=== PATIENT | female | born 1975 | race Caucasian/White ===

== ENCOUNTER → 2017-02-15 | Outpatient (CLI) | payer OTHER, BC ==
[~2017-02-15] MED LIST: ALBUAER19 INH; CYAN100020 PO; FRRS300 PO; LYR50 PO; MELO7.5T5 PO; RXC5 PO; TRAM-10 PO
--- NOTE | 2017-02-15 10:25 | DIAGNOSTIC IMAGING REPORT ---
RIGHT SHOULDER MRI HISTORY: Right shoulder pain. Right SHOULDER/SCAPULA STRAIN, R/O ROTATOR CUFF INJ Right TECHNIQUE: Multiplanar multisequence MRI of the right shoulder was performed without contrast. COMPARISON STUDY: None. FINDINGS: AC joint: Intact Rotator cuff: The infraspinatus, teres minor, subscapularis tendons are intact. There is mild increased signal seen within the supraspinatus tendon consistent with a mild tendinopathy. No evidence for full-thickness rotator cuff tear. No fluid within the subacromial/subdeltoid bursa. Labrum: Small focal area of fluid at the base of the superior labrum best seen on coronal image 9. This may represent a normal sulcus. Otherwise, no definite evidence for a labral tear. Biceps tendon: Intact Bones: Intact Cartilage: Intact Miscellaneous: No significant joint effusion. IMPRESSION: 1. Mild increased signal within the supraspinatus tendon consistent with a mild tendinopathy. No evidence for full-thickness rotator cuff tear. 2. Small focal area of fluid signal the base of the superior labrum. This favors a normal sulcus. Otherwise, no definite evidence for labral tear. Electronically signed by: J Luis Lara M.D. 02/15/2017 10:24 AM Dictated Date/Time: 02/15/2017 10:18 AM
== END | disposition home or self-care (01) ==
LOC: C.MRI 07:40
PROVIDERS: ATTEND Preventive Medicine Occupational Medicine
DX: S46.911A Strain of unspecified muscle, fascia and tendon at shoulder and upper arm level, right arm, initial encounter (principal); X58.XXXA Exposure to other specified factors, initial encounter

== ENCOUNTER → 2017-02-19 | Outpatient (CLI) | payer BC, OTHER ==
--- NOTE | 2017-02-19 09:11 | DIAGNOSTIC IMAGING REPORT ---
RIGHT SHOULDER MIN 2 VIEWS CLINICAL HISTORY: Right shoulder pain following injury. COMPARISON: MRI of the right shoulder February 15, 2017. FINDINGS: Alignment of the right shoulder is anatomic. There is no fracture. No osseous lesion is identified. There is mild AC joint arthrosis. IMPRESSION: 1. No acute fracture or dislocation of the right shoulder. 2. Mild arthritis of the right acromioclavicular joint. Electronically signed by: Jerod Tsai M.D. 02/19/2017 9:09 AM Dictated Date/Time: 02/19/2017 9:07 AM
--- NOTE | 2017-02-19 09:11 | DIAGNOSTIC IMAGING REPORT ---
CERVICAL SPINE 6 VIEWS HISTORY: Pain. Radiculopathy. NECK PAIN COMPARISON: None. FINDINGS: The cervical spine is visualized from C1 through the superior endplate of T1. There is no fracture. No subluxation. Moderate degenerative disc change from C4 through C6. Prevertebral soft tissues and the atlantodens interval are intact. IMPRESSION: 1. Mild reversal of the normal cervical curvature 2. Moderate degenerative intervertebral disc change from C4 through C6. 3. Otherwise negative study Electronically signed by: Bairon Abernathy M.D. 02/19/2017 9:09 AM Dictated Date/Time: 02/19/2017 9:08 AM
== END | disposition home or self-care (01) ==
LOC: C.RDSM 12:31
PROVIDERS: ATTEND Family Medicine
DX: M79.601 Pain in right arm (principal); M50.321 Other cervical disc degeneration at C4-C5 level; M50.322 Other cervical disc degeneration at C5-C6 level

== ENCOUNTER → 2017-03-08 | Outpatient (CLI) | payer OTHER ==
[~2017-03-08] MED LIST changes: +PREG1CAP28 PO
--- NOTE | 2017-03-08 10:59 | DIAGNOSTIC IMAGING REPORT ---
MRI CERVICAL WITHOUT CONTRAST CLINICAL HISTORY: CERVICAL RADICULOPATHY TECHNIQUE: Sagittal and axial T1, T2 and STIR images were obtained. COMPARISON STUDY: Conventional radiographic study dated 02/19/2017 There is a focal fatty rest/hemangioma to C6 level. There are no areas of marrow replacement suspicious for metastatic disease. No intrinsic cervical cord lesions are visualized. C2-3: There is no evidence of disc bulge or focal herniation. There is no spinal or foraminal stenosis. C3-4: There is no evidence of disc bulge or focal herniation. There is no spinal or foraminal stenosis. C4-5: There is a mild circumferential disc bulge. There is no significant spinal or foraminal stenosis C5-6 :There is a circumferential disc bulge slightly asymmetric to the left. There is mild spinal stenosis. There is mild left-sided foraminal narrowing C6-7: There is a broad-based central disc protrusion. There is mild spinal stenosis. There is no significant foraminal narrowing. C7-T1: There is no evidence of disc bulge or focal herniation. There is no evidence of spinal or foraminal stenosis. IMPRESSION: 1. No intrinsic cord lesions identified 2. Small broad-based disc protrusion at the C6-7 level. Mild C6-7 spinal stenosis 3. C5-C6 disc bulge asymmetric to the left. Mild spinal stenosis. Mild left-sided foraminal narrowing. Electronically signed by: Clifton Huber M.D. 03/08/2017 10:57 AM Dictated Date/Time: 03/08/2017 10:50 AM
== END | disposition home or self-care (01) ==
LOC: C.MRI 09:55
PROVIDERS: ATTEND Family Medicine
DX: M54.12 Radiculopathy, cervical region (principal)

== ENCOUNTER 2018-01-16 11:01 | Emergency (ER) | payer OTHER, BC ==
[~2018-01-16] VITALS: Ht 170.2 cm; Wt 116.0 kg
[~2018-01-16 11:01] MED LIST changes: -CYAN100020 PO; -FRRS300 PO; -LYR50 PO; -RXC5 PO
[2018-01-16 11:05] VITALS: TEMP 36.7; Ht 170.2 cm; Wt 116.0 kg
[2018-01-16] MEDS ORDERED: LEVO50TA PO (11:40)
[2018-01-16] MEDS ORDERED: LISI-461 PO (11:42)
[2018-01-16] MEDS ORDERED: MoRPHine SULFATE 10 MG/ML CARP/VIAL IM STA (11:44)
[2018-01-16] MEDS ORDERED: KETOROLAC TROMETHAMINE 60 MG/2 ML VIAL IM STA (11:44)
[2018-01-16] MEDS ORDERED: ONDANSETRON 4MG OD TAB PO ONE (11:45)
[2018-01-16] MEDS ORDERED: DEXAMETHASONE **PF** INJ 10 MG/ML VIAL IM ONE (11:45)
[2018-01-16] MEDS ORDERED: CYCL10TA6 PO (11:48)
[2018-01-16] MEDS ORDERED: METH4PAK PO (11:48)
[2018-01-16 12:21] VITALS: BP 145/99; PULSE 80; O2SAT 99
--- NOTE | 2018-01-16 13:49 | EMERGENCY ROOM VISIT NOTE ---
History First contact with patient: 11:23 Chief Complaint: NECK PAIN Stated Complaint: PAIN IN NECK, BACK ARM-ELECTRIC SHOCK-PRESSURE History of Present Illness The patient is a 42 year old female who presents to the Emergency Room with complaints of neck pain, headache and pain radiating into the right upper extremity. The patient reports a prior history of Worker's Compensation neck injury, and is currently under the management of Dr. Mane at [facility]. The patient reports that she has an appointment later this month to see a spine surgeon at [facility]. She has been seen locally at the [facility] without any significant improvement of symptoms. She has undergone nerve blocks and epidural steroid injections, with her last injection approximately 2 months ago. She has also undergone physical therapy and chiropractic treatment without relief. The patient reports that her symptoms started Wednesday when she was stretching and yawning, and felt tightness in her neck. The pain then progressively worsened to a headache and pain radiating into the right upper extremity to the hand. The patient reports that she experiences the symptoms quite frequently with her condition. The patient denies any dizziness, nausea or worsening headache. She denies any difficulty with speech or swallowing. She denies any paresthesias or numbness of the right facial region or right upper extremity. The patient reports that she has been taking Motrin without relief of her pain. The patient initially did not reveal that she was taking Lyrica and tramadol, which was discovered after review of the [place] Prescription Drug Monitoring program. These medications are being prescribed by Dr. Brooks. The patient currently rates her discomfort an 8 out of 10. Review of Systems 10 system review was performed and was negative except for pertinent positives and negatives as indicated in history of present illness Past Medical/Surgical History Medical Problems: (1) Anxiety/Depression (2) section (3) Fusion of lumbar spine (4) History of anemia (5) Hypothyroidism (6) Right lumbar radiculopathy (7) Right lumbar radiculopathy Family History Heart disease Social History Smoking Status: Current Every Day Smoker Alcohol Use: none Marital Status: single Housing Status: lives alone Occupation Status: employed Current/Historical Medications Scheduled Levothyroxine Sodium (Synthroid), 50 MCG PO DAILY Lisinopril (Zestril), 10 MG PO DAILY Methylprednisolone (Medrol Dosepak), 0 PO DAILY Pregabalin (Lyrica), 75 MG PO BID Tramadol (Ultram), 50 MG PO PRN Scheduled PRN Cyclobenzaprine Hcl (Flexeril), 10 MG PO TID PRN for spasm Physical Exam Vital Signs Date Time Temp Pulse Resp B/P (MAP) Pulse Ox O2 Delivery O2 Flow Rate FiO2 01/16/18 12:21 80 16 145/99 99 Room Air 01/16/18 11:05 36.7 97 18 159/100 97 Room Air Physical Exam CONSTITUTIONAL: Healthy and well nourished. Alert and oriented X 3 with positive affect. Patient appears in mild to moderate discomfort on my exam. HEENT: Normocephalic, atraumatic. Pupils equal, round and reactive. Ears and nares are clear. No facial droop noted. OROPHARYNX: Tongue is midline. No posterior pharyngeal erythema or exudates. Negative trismus. No evidence for Dixon's angina or retropharyngeal abscess. NECK: Examination shows generalized tenderness to palpation of the right cervical musculature with mild rigidity when compared to the left. She also has discomfort through the right trapezius muscle. Her pain is worsened with movement of the neck, however is exhibiting mostly full rotation without significant discomfort. RESPIRATORY: Clear to auscultation bilaterally with no wheezing, crackles, rhonchi or stridor. CARDIOVASCULAR: Regular rate and rhythm with no murmurs, rubs or gallops. MUSCULOSKELETAL: Patient has mild tenderness to palpation of the right trapezius and intrascapular region without muscle rigidity on palpation. She has no worsening discomfort with range of motion of the right shoulder. Distal pulses are intact. Handgrip is equal and symmetric bilaterally at 5 out of 5 strength. INTEGUMENTARY: No rash or other significant dermatologic conditions noted. NEUROLOGIC: Cranial nerves II-XII grossly intact. No focal neurologic deficits noted. Right deltoid sensation is intact. Right hand median, radial and ulnar motor and sensory are intact. No ataxia with ambulation. Negative pronator drift. Medical Decision & Procedures Medications Administered Medications (Trade) Dose Ordered Sig/Dana Route Start Time Stop Time Status Last Admin Dose Admin Ketorolac Tromethamine (Toradol Inj) 60 mg NOW STAT IM 01/16/18 11:44 01/16/18 11:46 DC 01/16/18 12:03 60 MG Morphine Sulfate (MoRPHine SULFATE INJ) 8 mg NOW STAT IM 01/16/18 11:44 01/16/18 11:46 DC 01/16/18 12:05 8 MG Ondansetron HCl (Zofran Odt) 4 mg ONE ONCE PO 01/16/18 11:45 01/16/18 11:46 DC 01/16/18 12:02 4 MG Dexamethasone Sodium Phosphate (Dexamethasone Inj Pf) 10 mg NOW ONCE IM 01/16/18 11:45 01/16/18 11:46 DC 01/16/18 12:04 10 MG ED Course Patient history and physical exam were performed. Nurse's notes were reviewed. Vital signs were reviewed, showing an elevated blood pressure of 159/100. As indicated in HPI, I did review the [place] Prescription Drug Monitoring Program database, showing that the patient receives regular monthly prescriptions for Lyrica and tramadol, prescribed by Dr. Brooks. The patient initially did not reveal that she was taking these medications as well. I spent approximately 15 minutes in education regarding neck injuries. I also discussed typical management under a Worker's Compensation claim. The patient wanted to know if she thought I should order an MRI of the neck. Patient was advised that she would be prior authorization for this, given that she does not have any emergent neurologic findings on today's exam. I did encourage her to follow-up with Dr. Brooks and Dr. Mane to discuss further management. For the patient's discomfort today, she was given IM morphine, Toradol and Decadron. She will receive prescriptions for a Medrol Dosepak and Flexeril. The patient voiced understanding that I would not be providing any further prescription analgesics, and will defer this treatment to her pain management doctor. The patient was happy with plan of care, voiced understanding of all discharge instructions, and rated her discomfort a 4 out of 10 at the conclusion of my exam. I did advise the patient that her blood pressure was also elevated in the emergency department. She was encouraged to follow-up with her PCP for blood pressure recheck. Medical Decision Patient presents to the emergency department with acute on chronic neck and right cervical radicular pain. The patient's symptoms were exacerbated by yawning and stretching. I do not suspect acute fracture, therefore x-rays were not performed. Clinical exam is not suggestive of an emergent nerve injury, therefore emergent MRI was not felt warranted. It sounds as if the patient has failed most conservative treatment options, and would benefit from surgical reevaluation. If she is a nonsurgical candidate, she may benefit from a functional capacity evaluation as she reports that her employer is stressing her to return to work. [place] Drug Monitoring Program Search Results: patient reviewed within database, see additional documentation Medication Reconcilliation Current Medication List: was personally reviewed by me Blood Pressure Screening Patient's blood pressure: Elevated blood pressure Blood pressure disposition: Referred to PCP Impression Primary Impression: Radiculitis of right cervical region Additional Impression: Elevated blood pressure reading Departure Information Dispostion Home / Self-Care Prescriptions Cyclobenzaprine Hcl (FLEXERIL) 10 Mg Tab 10 MG PO TID Y for spasm for 15 Days, #45 TAB Prov: Alexander Townsend PA 01/16/18 Methylprednisolone (MEDROL DOSEPAK) 4 Mg Drake 0 PO DAILY, #1 PKT Prov: Alexander Townsend PA 01/16/18 Referrals Rl Brooks M.D. Forms HOME CARE DOCUMENTATION FORM, IMPORTANT VISIT INFORMATION Patient Instructions My [facility] Additional Instructions Take Medrol Dosepak and Flexeril as prescribed. Ibuprofen 800 mg and/or Tylenol 1000 mg every 8 hours. You may also alternate these medications for more effective pain relief: Ibuprofen --4 HRS--> Tylenol --4 HRS--> ibuprofen --4 HRS--> Tylenol .... Continue with your current medications as prescribed by Dr. Brooks. Call Dr. Brooks's office to discuss further pain management options. Follow-up with Dr. Mane for further reevaluation. Problem Qualifiers
== END 2018-01-16 12:55 | disposition home or self-care (01) ==
LOC: C.EDB 11:03
DX: M54.12 Radiculopathy, cervical region (principal); R03.0 Elevated blood-pressure reading, without diagnosis of hypertension; Z87.828 Personal history of other (healed) physical injury and trauma; F41.9 Anxiety disorder, unspecified; F32.9 Major depressive disorder, single episode, unspecified; E03.9 Hypothyroidism, unspecified; M54.16 Radiculopathy, lumbar region; Z82.49 Family history of ischemic heart disease and other diseases of the circulatory system; F17.210 Nicotine dependence, cigarettes, uncomplicated; Z79.899 Other long term (current) drug therapy

== ENCOUNTER → 2018-01-31 | Outpatient (CLI) | payer OTHER, BC ==
[~2018-01-31] MED LIST changes: -ALBUAER19 INH; +CYCL10TA6 PO; +LEVO50TA PO; +LISI-461 PO; -MELO7.5T5 PO
--- NOTE | 2018-01-31 17:04 | DIAGNOSTIC IMAGING REPORT ---
CERVICAL WITHOUT CONTRAST HISTORY: 42 years-old Female CERVICAL SPINAL STENOSIS chronic neck pain for one year. No known injury. COMPARISON: Cervical spine MRI 03/08/2017 TECHNIQUE: Multiplanar multisequence MRI of the cervical spine was obtained without contrast. FINDINGS: There is straightening of the normal cervical doses. 8 mm hemangioma of the C6 vertebral body is unchanged. No focal bone marrow edema, acute fracture or subluxation. Ill-defined areas of apparent increased STIR signal within the central spinal cord at the C4-C6 level is favored to be artifactual as the sagittal T2 images and axial T2 images appear normal. The exam is mildly motion degraded. Soft tissues are unremarkable. No adenopathy. The imaged posterior fossa structures are unremarkable. C2-C3: No significant central canal or foraminal narrowing. Unchanged. C3-C4: No significant central canal or foraminal narrowing. Unchanged. C4-C5: Mild intervertebral disc space narrowing with uncovertebral spurring and small circumferential disc bulge. There is flattening of the ventral thecal sac causing mild central canal narrowing. There is mild left foraminal stenosis. The right foramen is patent. This has slightly progressed from comparison. C5-C6: Mild intervertebral disc space narrowing with uncovertebral spurring and small posterior disc bulge with left lateral recess/foraminal disc protrusion. This causes mild central canal, mild left lateral recess and mild left foraminal narrowing. The right foramen is generally patent. No significant change. C6-C7: Mild intervertebral disc space narrowing with uncovertebral spurring and small posterior disc bulge. This causes mild central canal narrowing thousand and foraminal stenosis. Unchanged. C7-T1: Normal. IMPRESSION: 1. No acute fracture, subluxation or focal bone marrow edema. 2. Mildly progressed discogenic degenerative changes at C4-C5 where there is mild central canal and mild left foraminal narrowing. 3. Unchanged discogenic degenerative changes at C5-C6 and C6-C7 as above. The above report was generated using voice recognition software. It may contain grammatical, syntax or spelling errors. Electronically signed by: Zak Bishop M.D. 01/31/2018 5:03 PM Dictated Date/Time: 01/31/2018 4:43 PM
== END | disposition home or self-care (01) ==
LOC: C.MRI 15:30
PROVIDERS: ATTEND Orthopaedic Surgery
DX: M54.2 Cervicalgia (principal); M48.02 Spinal stenosis, cervical region; M50.322 Other cervical disc degeneration at C5-C6 level; M50.323 Other cervical disc degeneration at C6-C7 level